=== PATIENT | female | born 1940 | race Caucasian/White ===

== ENCOUNTER 2023-05-20 17:26 | Observation (INO) | payer MEDICARE ==
[2023-05-20] MEDS ORDERED: NITROGLYCERIN SL TABS 0.4 MG TAB SUBLINGUAL PRN (17:46)
--- NOTE | 2023-05-20 17:46 | ED ---
General Adult HPI - General Stated complaint: Chest pain Time Seen by Provider: 05/20/23 17:29 Source: patient, EMS, RN notes reviewed, old records reviewed Mode of arrival: EMS Limitations: altered mental status - History of Present Illness Initial comments: Patient is a pleasant 83-year-old female presenting to the emergency department for chest discomfort. Patient is somewhat a poor historian. Patient states symptoms have been occurring for a couple of days. Patient states currently symptoms are 2/10. Patient did have some nausea yesterday. No associated dyspnea. No diaphoresis. Discomfort feels like pressure without radiation. Patient does have a difficult time remembering her history - Related Data Allergies Allergy/AdvReac Type Severity Reaction Status Date / Time No Known Allergies Allergy Verified 05/20/23 18:31 Review of Systems ROS Statement: Those systems with pertinent positive or pertinent negative responses have been documented in the HPI. ROS Other: All systems not noted in ROS Statement are negative. Constitutional: Denies: fever Eyes: Denies: eye pain Cardiovascular: Reports: as per HPI, chest pain Gastrointestinal: Denies: abdominal pain Skin: Denies: rash Neurological: Denies: weakness Past Medical History Past Medical History: GERD/Reflux, Hyperlipidemia, Osteoarthritis (OA) Smoking Status: Current every day smoker Past Drug Use History: None Reported General Exam Limitations: altered mental status General appearance: alert, in no apparent distress Head exam: Present: atraumatic, normocephalic Eye exam: Present: normal appearance Neck exam: Present: normal inspection Respiratory exam: Present: normal lung sounds bilaterally. Absent: chest wall tenderness Cardiovascular Exam: Present: regular rate, normal rhythm Expanded Peripheral pulses: 2+: Radial (R), Radial (L), Posterior Tibialis (R), Posterior Tibialis (L) GI/Abdominal exam: Present: soft. Absent: tenderness, pulsatile mass Extremities exam: Present: normal inspection. Absent: pedal edema, calf tenderness Neurological exam: Present: alert. Absent: motor sensory deficit Psychiatric exam: Present: normal affect, normal mood Skin exam: Present: normal color Course Vital Signs 05/20/23 17:29 Temperature 98.5 F Pulse Rate 60 Respiratory 18 Rate Blood Pressure 198/97 O2 Sat by Pulse 97 Oximetry EKG Findings - EKG Results: EKG: interpreted by ERMD, sinus rhythm, normal axis, normal QRS, normal ST/T EKG shows: bradycardia Medical Decision Making - Medical Decision Making Was pt. sent in by a medical professional or institution (, ILENE, [employer] CUTTING MACHINE TENDER, urgent care, hospital, or group home...) When possible be specific @ -Patient was transferred from [facility] Did you speak to anyone other than the patient for history (EMS, parent, family, police, friend...)? What history was obtained from this source @ -EMS helps provide history as patient is a poor historian Did you review nursing and triage notes (agree or disagree)? Why? @ -I reviewed and agree with nursing and triage notes Were old charts reviewed (outside hosp., previous admission, EMS record, old EKG, old radiological studies, urgent care reports/EKG's, group home records)? Report findings @ -Chart reviewed from [facility] Differential Diagnosis (chest pain, altered mental status, abdominal pain women, abdominal pain men, vaginal bleeding, weakness, fever, dyspnea, syncope, headache, dizziness, GI bleed, back pain, seizure, CVA, palpatations, mental health, musculoskeletal)? @ -Differential Chest Pain: Stable Angina, Unstable Angina, STEMI, NSTEMI Aortic Dissection, Pneumothorax, Musculoskeletal, Esophageal Spasm GERD, Cholecystitis, Pancreatitis, Zoster, this is not meant to be an all-inclusive list. EKG interpreted by me (3pts min.). @ -EKG from heart reviewed shows sinus bradycardia. Normal axis. Small Q wave V1 V2. No acute ST change. X-rays interpreted by me (1pt min.). @ -None done CT interpreted by me (1pt min.). @ -None done U/S interpreted by me (1pt. min.). @ -None done What testing was considered but not performed or refused? (CT, X-rays, U/S, labs)? Why? @ -None What meds were considered but not given or refused? Why? @ -None Did you discuss the management of the patient with other professionals (professionals i.e. ILENE Joshua, [employer] C[employer]TING MACHINE TENDER, lab, RT, psych nurse, social insurance administrator, picker, teacher, freedom of information officer, rn case management)? Give summary @ -Case was discussed by admitting physician Dr. Garcia, who will admit covering hospital call Was smoking cessation discussed for >3mins.? @ -No Was critical care preformed (if so, how long)? @ -No Were there social determinants of health that impacted care today? How? (Homelessness, low income, unemployed, alcoholism, drug addiction, transportation, low edu. Level, literacy, decrease access to med. care, long-term, rehab)? @ -No Was there de-escalation of care discussed even if they declined (Discuss DNR or withdrawal of care, Hospice)? DNR status @ -No What co-morbidities impacted this encounter? (DM, HTN, Smoking, COPD, CAD, Cancer, CVA, ARF, Chemo, Hep., AIDS, mental health diagnosis, sleep apnea, morbid obesity)? @ -None Was patient admitted / discharged? Hospital course, mention meds given and route, prescriptions, significant lab abnormalities, going to OR and other perti nent info. @ -Patient presents as transfer with mild chest discomfort. Currently symptoms are 2/10. Patient will be admitted with cardiac consult. Chart reviewed. [place] orders written. Undiagnosed new problem with uncertain prognosis? @ -No Drug Therapy requiring intensive monitoring for toxicity (Heparin, Nitro, Insulin, Cardizem)? @ -No Were any procedures done? @ -No Diagnosis/symptom? @ -Chest pain Acute, or Chronic, or Acute on Chronic? @ -Acute Uncomplicated (without systemic symptoms) or Complicated (systemic symptoms)? @ -Default Side effects of treatment? @ -No Exacerbation, Progression, or Severe Exacerbation? @ -No Poses a threat to life or bodily function? How? (Chest pain, [place], [place], pneumonia, PE, COPD, DKA, ARF, appy, cholecystitis, CVA, Diverticulitis, Homicidal, Suicidal, threat to staff... and all critical care pts) @ -No Disposition Clinical Impression: Chest pain Disposition: ADMITTED IP TO THIS HOSP Is patient prescribed a controlled substance at d/c from ED?: No Referrals: None,Stated [Primary Care Provider] - 1-2 days Time of Disposition: 17:45
[2023-05-20] MEDS: NITROGLYCERIN OINT 1 INCH/GM PACKET TOPICAL SCH (17:54)
[2023-05-20] MEDS: ASPIRIN 81 MG PO STA (17:54)
--- NOTE | 2023-05-21 02:12 | P.HPIM ---
History of Present Illness H&P Date: 05/20/23 Chief Complaint: chest pain 83-year-old female with COPD hyperlipidemia Patient was transferred to our facility from [facility] to rule out acute coronary syndrome. She reports an episode of chest pain this started last night describes it as pressure felt on her mid chest radiating to her back associated with feeling nauseous and some palpitations denies any shortness of breath or profuse sweating. She was also feeling slightly lightheaded and dizzy she reports taking couple pills of aspirin baby aspirin and then she went to sleep this morning she felt fine she went to her group meeting where they usually do vital signs check and the nurse told her that her blood pressure was elevated at that point she was reporting some pain across her back for which she was sent to [facility] where CT angio of the chest was done no acute dissection or PE was identified. Initial troponins were negative however patient was transferred to our facility for further care. EKG showed sinus bradycardia with no acute ST changes Patient denies any cardiac history in the past denies any cardiac workup in the past. Patient denies any recent travel or hospital stay Patient admits to tobacco smoking denies any illicit drugs or heavy alcohol review of systems Pertinent positives as noted in HPI. All other systems were reviewed and are negative on exam Constitutional: No acute distress, conversant, pleasant Eyes: Anicteric sclerae, moist conjunctiva, Pupils equal round reactive to light ENMT: NC/AT Oropharynx clear, no erythema, or exudates Neck: Supple, no masses, or JVD No carotid bruits No thyromegaly Lungs: Clear to auscultation Clear to percussion Normal respiratory effort, no accessory muscle use Cardiovascular: Heart regular in rate and rhythm, Systolic murmurs, no gallops, or rubs No peripheral edema Abdominal: Soft Nontender, no guarding, rebound or rigidity Abdomen moving with respiration Normoactive bowel sounds No hepatomegaly, No splenomegaly Extremities: No digital cyanosis No clubbing Pedal pulses intact and symmetrical Radial pulses intact and symmetrical No calf tenderness Psychiatric: Alert and oriented to person, place and time Appropriate affect fair judgement Neuro Muscles Strength 5/5 in all 4 extremities Sensation to light touch grossly present throughout Cranial nerves II-XII grossly intact Past Medical History Past Medical History: GERD/Reflux, Hyperlipidemia, Osteoarthritis (OA) History of Any Multi-Drug Resistant Organisms: None Reported Past Surgical History: Appendectomy, Hysterectomy, Tonsillectomy Smoking Status: Current every day smoker Past Drug Use History: None Reported Medications and Allergies Home Medications Medication Instructions Recorded Confirmed Type Clobetasol Propionate [Temovate 1 applic TOPICAL BID PRN 05/20/23 05/20/23 History 0.05% Cream] Fluticasone/Umeclidin/Vilanter 1 puff INHALATION RT-DAILY 05/20/23 05/20/23 History [Trelegy Ellipta 100-62.5-25] Omeprazole 40 mg PO AC-BRKFST 05/20/23 05/20/23 History PARoxetine HCL [Paxil] 15 mg PO DAILY 05/20/23 05/20/23 History Potassium Chloride ER [K-Dur 20] 60 meq PO TID 05/20/23 05/20/23 History Simvastatin [Zocor] 20 mg PO HS 05/20/23 05/20/23 History hydroCHLOROthiazide [Hydrodiuril] 25 mg PO DAILY 05/20/23 05/20/23 History Allergies Allergy/AdvReac Type Severity Reaction Status Date / Time No Known Allergies Allergy Verified 05/20/23 18:32 Physical Exam Vitals: Vital Signs Temp Pulse Resp BP Pulse Ox 05/20/23 23:28 81 16 151/69 95 05/20/23 18:51 68 16 168/77 96 05/20/23 17:29 98.5 F 60 18 198/97 97 Intake and Output 05/20/23 05/20/23 05/21/23 14:59 22:59 06:59 Other: Weight 65.771 kg Assessment and Plan Assessment: 83-year-old female hyperlipidemia coming in for uncontrolled blood pressure and new episode of chest pain and back pain I discussed case with ED doctor accepted the admission for atypical chest pain to rule out acute coronary syndrome with anticipated length of stay less than 2 midnights Atypical chest pain rule out acute coronary syndrome Initial troponin negative continue to trend EKG shows sinus bradycardia no acute ST changes Patient is a transfer from [facility] CT angio of the t chest was done and showed no acute PE no dissection Continue with vital signs monitoring Gentle IV fluid hydration normal saline 75 cc/h Cardiology consult Monitor vital signs awake overnight monitor Continue with aspirin and statin COPD compensated Continue with home inhalers DuoNebs as needed Blood work overall unremarkable sodium 140 potassium 3.5 BUN 9 creatinine 1 Liver enzymes unremarkable White count 6.2 Hemoglobin 13 Full code DVT prophylaxis heparin subcu 3 times daily
[2023-05-21] MEDS ORDERED: AMINOPHYLLINE 500 MG/20 ML VIAL IV PRN (07:57)
[2023-05-21] MEDS ORDERED: REGADENOSON 0.4 MG/5 ML SYRINGE IV PRN (07:57)
[2023-05-21] MEDS ORDERED: CAFFEINE CITRATE 60 MG/3 ML VIAL IV PRN (07:57)
[2023-05-21] MEDS: IPRATROPIUM 0.5 MG/2.5 ML NEBU INHALATION SCH (08:18)
[2023-05-21] MEDS: IPRATROPIUM-ALBUTEROL 3 ML NEB INHALATION PRN (08:18)
[2023-05-21] MEDS: SYMBICORT 80-4.5 MCG INHALER INHALATION SCH (08:19)
[2023-05-21] MEDS ORDERED: ASPIRIN 325 MG TAB PO SCH (09:00)
[2023-05-21] MEDS: LOSARTAN 25 MG TAB PO SCH (09:12)
[2023-05-21] MEDS: hydroCHLOROthiazide 25 MG TAB PO SCH (09:12)
[2023-05-21] MEDS: PANTOPRAZOLE 40 MG TABLET PO SCH (09:12)
[2023-05-21] MEDS: ASPIRIN 81 MG PO SCH (09:12)
[2023-05-21] MEDS: HEPARIN SODIUM,PORCINE 5,000 UNIT/ML 1 ML VIAL SQ SCH (09:13)
--- NOTE | 2023-05-21 09:37 | P.CRDCN ---
History of Present Illness Consult date: 05/21/23 Consult reason: chest pain History of present illness: History of present illness: This is an 83-year-old female with no previous cardiac history and does not follow with a trade union secretary. She states she has been told for many years that she had a mitral valve prolapse but has never had any workup done no stress test no cardiac catheterization. She has a past medical history of hypertension, hyperlipidemia, tobacco use and dependence. Patient initially presented to [facility] and was transferred to [facility]. 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 She has not had none since then. She states she took baby aspirin and Tylenol and went back to bed and fell asleep eventually but then when she got up the pain was gone. She often has back discomfort. The pain in her chest was on the right side. She complains of cough no wheezing. She denies any lightheadedness, dizziness, palpitations. No lower extremity edema now but has this intermittently. No syncopal episodes. No blood in her urine or stool. No history of stroke or seizure. No history of diabetes. Patient is an active smoker. She also drinks caffeine daily. No alcohol use. At [place] she underwent a CT angiogram of the chest that showed no dissection and no PE. Troponins were negative. EKG was a sinus bradycardia with no acute ST-T wave changes. EKG sinus rhythm at 55 bpm Chest x-ray: Troponin negative x 1. Home cardiac medications: Hydrochlorothiazide 25 mg daily, potassium chloride 60 mEq 3 times daily, Zocor 20 mg at bedtime. Review Of Systems: At the time of my exam: CONSTITUTIONAL: Denies fever or chills. HEENT: Denies blurred vision, vision changes, or eye pain. Denies hemoptysis CARDIOVASCULAR: Denies chest pain. Denies orthopnea. Denies PND. Denies palpitations RESPIRATORY: Denies shortness of breath. GASTROINTESTINAL: Denies abdominal pain. Denies nausea or vomiting. HEMATOLOGIC: Denies bleeding disorders. GENITOURINARY: Denies any blood in urine. SKIN: Denies pruitis. Denies rash. Physical examination: Gen: This is an 83-year-old female in no acute distress VS: reviewed blood pressure 181/64, heart rate in the 50s. HEENT: Head is atraumatic, normocephalic. Pupils equal, round. Sclerae is anicteric. NECK: Supple. No JVD. LUNGS: Clear to auscultation. No wheezes or rhonchi. No intercostal retr actions. HEART: Regular rate and rhythm. Holosystolic murmur, systolic murmur. ABDOMEN: Soft No tenderness. EXTREMITIES: No pedal edema. No calf tenderness. NEUROLOGICAL: Patient is awake, alert and oriented x3. Assessment: Chest pain, acute coronary syndrome ruled out most likely due to musculoskeletal etiology Hypertension Hyperlipidemia Tobacco use and dependence Plan: Resume patient's home cardiac medications Add losartan 25 mg daily Obtain Lexiscan stress test today Obtain 2-D echocardiogram and Doppler study to assess cardiac structure and function If stress test and echocardiogram are unremarkable, patient is cleared for discharge from cardiology may follow-up in the office in 1 to 2 weeks. Smoking cessation discussed with the patient. Thank you kindly for this consultation. Nurse practitioner note has been reviewed, I agree with documented findings and plan of care. Patient was seen and examined. Past Medical History Past Medical History: GERD/Reflux, Hyperlipidemia, Osteoarthritis (OA) History of Any Multi-Drug Resistant Organisms: None Reported Past Surgical History: Appendectomy, Hysterectomy, Tonsillectomy Smoking Status: Current every day smoker Past Drug Use History: None Reported Medications and Allergies Home Medications Medication Instructions Recorded Confirmed Type Clobetasol Propionate [Temovate 1 applic TOPICAL BID PRN 05/20/23 05/20/23 History 0.05% Cream] Fluticasone/Umeclidin/Vilanter 1 puff INHALATION RT-DAILY 05/20/23 05/20/23 History [[place] Ellipta 100-62.5-25] Omeprazole 40 mg PO AC-BRKFST 05/20/23 05/20/23 History PARoxetine HCL [Paxil] 15 mg PO DAILY 05/20/23 05/20/23 History Potassium Chloride ER [K-Dur 20] 60 meq PO TID 05/20/23 05/20/23 History Simvastatin [Zocor] 20 mg PO HS 05/20/23 05/20/23 History hydroCHLOROthiazide [Hydrodiuril] 25 mg PO DAILY 05/20/23 05/20/23 History Allergies Allergy/AdvReac Type Severity Reaction Status Date / Time No Known Allergies Allergy Verified 05/20/23 18:32 Physical Exam Vitals: Vital Signs Temp Pulse Resp BP Pulse Ox 05/21/23 05:21 50 L 14 151/69 99 05/20/23 23:28 81 16 151/69 95 05/20/23 18:51 68 16 168/77 96 05/20/23 17:29 98.5 F 60 18 198/97 97 Intake and Output 05/20/23 05/21/23 05/21/23 22:59 06:59 14:59 Other: Weight 65.771 kg Results Cardiac Enzymes 05/20/23 Range/Units 18:07 Troponin I <0.012 (0.000-0.034) ng/mL Current Medications Generic Name Dose Route Start Last Admin Trade Name Freq PRN Reason Stop Dose Admin Albuterol/Ipratropium 3 ml 05/21/23 02:13 Ipratropium-Albuterol 3 Ml Neb INHALATION RT-QID PRN Shortness Of Breath Or Wheezing Aspirin 325 mg 05/21/23 09:00 Aspirin 325 Mg Tab PO DAILY [facility] Atorvastatin Calcium 10 mg 05/21/23 21:00 Atorvastatin 10 Mg Tab PO HS [facility] Budesonide/Formoterol Fumarate 2 puff 05/21/23 08:00 Symbicort 80-4.5 Mcg Inhaler INHALATION RT-BID [facility] Heparin Sodium (Porcine) 5,000 unit 05/21/23 08:00 Heparin Sodium,Porcine 5,000 Unit/Ml 1 Ml Vial SQ Q8HR [facility] Hydrochlorothiazide 25 mg 05/21/23 09:00 Hydrochlorothiazide 25 Mg Tab PO DAILY [facility] Ipratropium [place] 0.5 mg 05/21/23 08:00 Ipratropium 0.5 Mg/2.5 Ml Nebu INHALATION RT-QID [facility] Nitroglycerin 0.5 inch 05/20/23 18:00 05/21/23 06:03 Nitroglycerin Oint 1 Inch/Gm Packet TOPICAL 0.5 inch Q6HR [facility] Administration Nitroglycerin 0.4 mg 05/20/23 17:46 Nitroglycerin Sl Tabs 0.4 Mg Tab SUBLINGUAL Q5M PRN Chest Pain Pantoprazole Sodium 40 mg 05/21/23 07:30 Pantoprazole 40 Mg Tablet PO AC-BRKFST BRISA Intake and Output 05/20/23 05/21/23 05/21/23 22:59 06:59 14:59 Other: Weight 65.771 kg
[2023-05-21 09:49] LABS: African American GFR (CKD) 66 (>60 ml/min/1.73 sqM); Anion Gap 3 mmol/L; Blood Urea Nitrogen 12 mg/dL (7-17); Calcium 9.7 mg/dL (8.4-10.2); Carbon Dioxide 32 mmol/L (22-30); Chloride 107 mmol/L (98-107); Glucose 97 mg/dL (74-99); Non-African American GFR(CKD) 58 (>60 ml/min/1.73 sqM); Potassium 4.6 mmol/L (3.5-5.1); Sodium 142 mmol/L (137-145)
--- NOTE | 2023-05-21 12:44 | NM ---
EXAMINATION TYPE: NM stress lexiscan cardiolite DATE OF EXAM: 05/21/2023 COMPARISON: NONE CLINICAL INDICATION: Female, 83 years old with history of chest pain; TECHNIQUE: After the intravenous administration of 9.79 mCi Tc 99m Sestamibi - Cardiolite resting SP ECT images. The patient received 0.4mg Lexiscan, 25 mCi Tc 99m Sestamibi - Stress images obtained 30 minutes post injection FINDINGS: Review of stress and rest SPECT images demonstrates no distinct perfusion abnormality. Gated analysi s shows normal wall motion with an estimated left ventricular ejection fraction of 81 %. IMPRESSION: No scintigraphic evidence for reversible ischemia.
--- NOTE | 2023-05-21 12:51 | CA ---
Lexiscan Nuclear Stress Test Report Name: Ann Bautista Exam Date: 05/21/2023 10:37 Exam Location: [place] Stress Ht (in): 65 Wt (lb): 145 BSA: 1.73 Ordering Phys: James Rayo Referring Phys: JAMES RAYO Technologist: RICHARD Age: 83 Gender: F : 1940 Procedure CPT: Indications: Reflex order-Stress test ICD-10 Codes: Patient History: Chest pain Medications: Meds past 24 hrs: Pretest Chest Pain: STRESS TEST Lexiscan Protocol Exercise Duration (min:sec): 01:[address] Depressions (mm): Angina Score: Hendrickson Score: Resting HR (bpm): 50 Peak HR (bpm): 94 Resting BP (mmHg): 140 / 74 Peak BP (mmHg): 172 / 70 MPHR: 136 Target HR: 116 % MPHR: 69 METS: 1.0 Total Dose: Peak Dose: Atropine: Double Product: 21536 BP Response: Stress Termination: Infusion complete Stress Symptoms: No chest pain or symptoms Stress Summary: ECG ANALYSIS Resting ECG: Sinus rhythm. Normal conduction. No arrhythmias. Nonspecific ST-T abnormality. Stress ECG: No ECG changes from baseline with Lexiscan infusion. CONCLUSIONS No ECG evidence of ischemia with Lexiscan infusion. Nuclear test results to follow. Dr. Irineo Tirado MD (Electronically Signed) Final Date: 21 May 2023 12:51
[2023-05-21 13:17] LABS: Chol/HDL Ratio 2.62 Ratio; LDL Cholesterol,Calculated 75.4 mg/dL (0.0-131.0)
--- NOTE | 2023-05-21 16:56 | P.PN ---
Subjective Progress Note Date: 05/21/23 Hospital Course: 83-year-old female with history of COPD, dyslipidemia presenting from [facility] with concerns of chest pain. CT angiogram at outside hospital did not show any PE or acute dissection. Initial troponins were negative. EKG showed sinus bradycardia, with no acute ST-T wave changes. Laboratory tests are unremarkable. Troponin continues to be negative. Cardiology consulted. Lexiscan stress test negative. Echocardiogram pending. Subjective: Patient seen and examined at bedside. No acute events overnight. Pertinent positives and negatives as discussed above, a complete review of systems was performed and all other systems are negative. Vitals Signs Reviewed. General: Nontoxic, no distress, appears at stated age Derm: Warm, dry Head: Atraumatic, normocephalic, symmetric Eyes: EOMI, no lid lag, anicteric sclera Mouth: No lip lesion, mucus membranes moist Cardiovascular: S1S2 reg, no murmur Lungs: CTA bilateral, no rhonchi, no rales, no accessory muscle use Abdominal: Soft, nontender to palpation, no guarding, no appreciable organomegaly Ext: No gross muscle atrophy, no edema, no contractures Neuro: CN II-XI grossly intact, no focal neuro deficits Psych: Alert, oriented, appropriate affect Data Reviewed Today: Pertinent Labs: Sodium 142, bicarb 32, creatinine 0.92, LDL 75.4, total cholesterol 158. Imaging: No new imaging Assessment and Plan: Active: Chest pain, ACS ruled out Hypertension Dyslipidemia -Cardiology note reviewed, stress test negative, pending echocardiogram -Continue aspirin 81 mg daily, atorvastatin 10 mg nightly -Patient also started on losartan 25 daily, continue hydrochlorothiazide 25 daily Chronic: COPD, not in exacerbation GERD DVT ppx: Subcu heparin Code status: Full code Anticipated discharge place: Home Anticipated discharge time: Likely tomorrow Objective - Vital Signs Vital signs: Vital Signs Temp 98.6 F 05/21/23 14:19 Pulse 62 05/21/23 16:12 Resp 18 05/21/23 14:19 BP 144/74 05/21/23 14:19 Pulse Ox 94 L 05/21/23 14:19 FiO2 Intake & Output 05/20/23 05/21/23 05/21/23 18:59 06:59 18:59 Intake Total 118 Balance 118 Weight 65.771 kg 65.771 kg Intake: Oral 118 - Labs CBC & Chem 7: 05/21/23 08:56 Labs: Abnormal Lab Results - Last 24 Hours (Table) 05/21/23 05/21/23 Range/Units 08:56 08:56 Carbon Dioxide 32 H (22-30) mmol/L HDL Cholesterol 60.40 H (40.00-60.00) mg/dL
--- NOTE | 2023-05-21 18:03 | CA ---
Transthoracic Echo Report Name: Ann Bautista Age: 83 Gender: F : 1940 Exam Date: 05/21/2023 14:43 Exam Location: [facility] Ht (in): 65 Wt (lb): 145 Ordering Physician: Lavinia Son Attending/Referring Phys: [id number], Huy Putter In Vanessa Crenshaw RCS Procedure CPT: Indications: LVF Cardiac Hx: Technical Quality: Fair Contrast 1: Total Dose (mL): Contrast 2: Total Dose (mL): MEASUREMENTS (Male / Female) Normal Values 2D ECHO LV Diastolic Diameter PLAX 5.2 cm 4.2 - 5.9 / 3.9 - 5.3 cm LV Systolic Diameter PLAX 3.2 cm IVS Diastolic Thickness 0.8 cm 0.6 - 1.0 / 0.6 - 0.9 cm LVPW Diastolic Thickness 0.7 cm 0.6 - 1.0 / 0.6 - 0.9 cm LV Relative Wall Thickness 0.3 LVOT Diameter 2.4 cm Aortic Root Diameter 2.7 cm LV Diastolic Volume MOD BP 62.4 cm??? 67 - 155 / 56 - 104 cm??? LV Systolic Volume MOD BP 23.0 cm??? 22 - 58 / 19 - 49 cm??? LV Ejection Fraction MOD BP 63.2 % >= 55 % LV Cardiac Index MOD BP 1401.8 cm???/min???m??? LV Diastolic Volume MOD 4C 60.2 cm??? LV Systolic Volume MOD 4C 26.6 cm??? LV Ejection Fraction MOD 4C 55.7 % LV Cardiac Index MOD 4C 1190.3 cm???/min???m??? LV Diastolic Length 4C 8.1 cm LV Systolic Length 4C 6.9 cm LV Diastolic Volume MOD 2C 65.1 cm??? LV Systolic Volume MOD 2C 18.5 cm??? LV Ejection Fraction MOD 2C 71.6 % LV Cardiac Index MOD 2C 1654.8 cm???/min???m??? LV Diastolic Length 2C 8.1 cm LV Systolic Length 2C 6.4 cm Ascending Aorta Diameter 3.3 cm DOPPLER AV Peak Velocity 181.3 cm/s AV Peak Gradient 13.2 mmHg AV Mean Velocity 130.3 cm/s AV Mean Gradient 7.5 mmHg AV Velocity Time Integral 40.1 cm LVOT Peak Velocity 149.4 cm/s LVOT Peak Gradient 8.9 mmHg LVOT Velocity Time Integral 31.0 cm LVOT Stroke Volume 141.6 cm??? LVOT Stroke Volume Index 82.1 ml/m??? LVOT Cardiac Index 5030.4 cm???/min???m??? AV Area Cont Eq vti 3.5 cm??? AV Area Cont Eq pk 3.8 cm??? Mitral E Point Velocity 65.9 cm/s Mitral A Point Velocity 107.9 cm/s Mitral E to A Ratio 0.6 MV Deceleration Time 299.5 ms MV E' Velocity 6.4 cm/s Mitral E to MV E' Ratio 10.3 PV Peak Velocity 102.9 cm/s PV Peak Gradient 4.2 mmHg FINDINGS Left Ventricle Left ventricular ejection fraction is estimated at 60-65 %. Left ventricular cavity size normal. Left ventricular function is hyperdynamic with mid cavitary gradient. Left ventricular wall thickness at upper limits of normal. No obvious regional wall motion abnormalities. Right Ventricle Normal right ventricular size and function. Unable to interpret right ventricular systolic pressure due to inadequate doppler signal. Right Atrium Normal right atrial size. Left Atrium Normal left atrial size. Mitral Valve Thickened mitral valve without stenosis. No mitral stenosis. Trace mitral regurgitation. No evidence for mitral valve prolapse. Aortic Valve Trileaflet aortic valve. Diffuse thickening (sclerosis) of the aortic valve cusps without reduced excursion. No aortic valve stenosis or regurgitation. Tricuspid Valve Structurally normal tricuspid valve. No tricuspid stenosis, regurgitation or prolapse. Pulmonic Valve No pulmonic stenosis. No pulmonic regurgitation.pulmonic valve not well visualized. Pericardium No pericardial effusion. Aorta Normal size aortic root and proximal ascending aorta. CONCLUSIONS 1. Normal left ventricle size and systolic function with mid cavity gradient 2. Trace mitral regurgitation Previewed by: Dr. Irineo Tirado MD (Electronically Signed) Final Date: 21 May 2023 18:02
--- NOTE | 2023-05-21 18:24 | P.DS ---
Providers Date of admission: 05/20/23 17:46 Expected date of discharge: 05/21/23 Attending physician: Bubba Cardoso MD Consults: 05/20/23 17:46 Consult Physician Urgent Consulting Provider: Kody Watson Consult Reason/Comments: cp Do you want consulting provider notified?: Yes Primary care physician: Stated None Hospital Course: Discharge Diagnosis: Chest pain, ACS ruled out Hypertension Dyslipidemia Hospital Course: 83-year-old female with history of COPD, dyslipidemia presenting from [facility] with concerns of chest pain. CT angiogram at outside hospital did not show any PE or acute dissection. Initial troponins were negative. EKG showed sinus bradycardia, with no acute ST-T wave changes. Laboratory tests are unremarkable. Troponin continues to be negative. Cardiology consulted. Lexiscan stress test negative. Echocardiogram was unremarkable. Patient being discharged on losartan and hydrochlorothiazide for elevated blood pressure. Follow-up with cardiology outpatient. Patient seen and examined at bedside. Vital signs reviewed and stable. General: Nontoxic, no distress, appears at stated age Derm: Warm, dry Head: Atraumatic, normocephalic, symmetric Eyes: EOMI, no lid lag, anicteric sclera Mouth: No lip lesion, mucus membranes moist Cardiovascular: S1S2 reg, no murmur Lungs: CTA bilateral, no rhonchi, no rales, no accessory muscle use Abdominal: Soft, nontender to palpation, no guarding, no appreciable organomegaly Ext: No gross muscle atrophy, no edema, no contractures Neuro: CN II-XI grossly intact, no focal neuro deficits Psych: Alert, oriented, appropriate affect A total of 33 minutes of time were spent preparing this complex discharge summary. Patient was discharged on 05/21/2023 at 1822. Patient Condition at Discharge: Stable Plan - Discharge Summary New Discharge Prescriptions: New Losartan [Cozaar] 25 mg PO DAILY #90 tab Continue Clobetasol Propionate [Temovate 0.05% Cream] 1 applic TOPICAL BID PRN PRN Reason: vulvar hydroCHLOROthiazide [Hydrodiuril] 25 mg PO DAILY Omeprazole 40 mg PO AC-BRKFST Simvastatin [Zocor] 20 mg PO HS PARoxetine HCL [Paxil] 15 mg PO DAILY Fluticasone/Umeclidin/Vilanter [Trelegy Ellipta 100-62.5-25] 1 puff INHALATION RT-DAILY Discontinued Potassium Chloride ER [K-Dur 20] 60 meq PO TID Discharge Medication List Clobetasol Propionate [Temovate 0.05% Cream] 1 applic TOPICAL BID PRN 05/20/23 [History] Fluticasone/Umeclidin/Vilanter [Trelegy Ellipta 100-62.5-25] 1 puff INHALATION RT-DAILY 05/20/23 [History] Omeprazole 40 mg PO AC-BRKFST 05/20/23 [History] PARoxetine HCL [Paxil] 15 mg PO DAILY 05/20/23 [History] Simvastatin [Zocor] 20 mg PO HS 05/20/23 [History] hydroCHLOROthiazide [Hydrodiuril] 25 mg PO DAILY 05/20/23 [History] Losartan [Cozaar] 25 mg PO DAILY #90 tab 05/21/23 [Rx] Follow up Appointment(s)/Referral(s): Irineo Tirado MD [STAFF PHYSICIAN] - 2 Weeks None,Stated [Primary Care Provider] - 1-2 days Patient Instructions/Handouts: Chest Pain (DC), Chronic Hypertension (DC) Activity/Diet/Wound Care/Special Instructions: Please see your PCP and cardiology. Discharge Disposition: HOME SELF-CARE
[2023-05-21 18:36] VITALS: BP 159/69; PULSE 80; RESP 16; TEMP 98.4
[2023-05-21] MEDS ORDERED: ATORVASTATIN 10 MG TAB PO SCH (21:00)
== END 2023-05-21 18:50 | disposition home or self-care (01) ==
LOC: EC 17:26 → 6NMEDSUR 17:46
PROVIDERS: ADMIT Family Medicine; ATTEND Family Medicine
DX: R07.89 Other chest pain (principal); R00.1 Bradycardia, unspecified; R00.2 Palpitations; R11.0 Nausea; R42 Dizziness and giddiness; I10 Essential (primary) hypertension; E78.5 Hyperlipidemia, unspecified; J44.0 Chronic obstructive pulmonary disease with (acute) lower respiratory infection; K21.9 Gastro-esophageal reflux disease without esophagitis; F17.200 Nicotine dependence, unspecified, uncomplicated; M19.90 Unspecified osteoarthritis, unspecified site; Z79.899 Other long term (current) drug therapy
CPT/HCPCS: 96372; 99285; 36415; 94640 ×2; 93005; 93017; 93306; 80061; 80048; 84484; 78452; G0378 ×2; A9500; J1644; J2785